=== PATIENT | male | born 1955 | race Caucasian/White ===

== ENCOUNTER 2018-04-16 09:00 | Inpatient (IN) ==
[2018-05-09] MEDS ORDERED: Chlorhexidine Gluconate 2% 1 Pack (2 Cloths) TOPICAL ONE (08:24)
[2018-05-09] MEDS ORDERED: Metoprolol Tartrate 25 MG Tablet PO ONE (08:24)
[2018-05-09] MEDS ORDERED: Chlorhexidine 4% Topical 120 APPLIC/120 ML Bottle TOPICAL SCH (08:30)
[2018-05-09] MEDS ORDERED: Sodium Chlor 0.9% Inj 40 ML, Bupivacaine Liposo PF 1.3% Inj 20 ML P-ARTICULR SCH ×2 (08:30)
[2018-05-09 08:45] LABS: Baso # (Auto) 0.1 th/mm3 (0.0-0.2); Baso % (Auto) 0.7 % (0.0-2.0); Eos # (Auto) 0.2 th/mm3 (0.0-0.4); Eos % (Auto) 1.5 % (0.0-4.0); Hemoglobin 15.2 gm/dL (13.0-17.0); Lymph % (Auto) 31.6 % (9.0-44.0); Mean Corpuscular HGB Conc 32.9 % (32.0-36.0); Mean Corpuscular Hemoglobin 30.2 pg (27.0-34.0); Mean Corpuscular Volume 91.8 fL (80.0-100.0); Mean Platelet Volume 9.9 fL (7.0-11.0); Mono # (Auto) 1.1 th/mm3 (0.0-0.9); Neut # (Auto) 7.3 th/mm3 (1.8-7.7); Neut % (Auto) 57.2 % (16.0-70.0); Platelet Count 236 th/mm3 (150-450); Red Blood Count 5.01 mil/mm3 (4.50-5.90); Red Cell Distribution Width 14.4 % (11.6-17.2); White Blood Count 12.7 th/mm3 (4.0-11.0)
[2018-05-09] MEDS ORDERED: Bupivacaine/Epinephrine Inj 0.25% 50 ML Vial ONE (08:56)
[2018-05-09] MEDS ORDERED: Sodium Chlor 0.9% Inj 500 ML IV.SIG SCH (09:00)
[2018-05-09] MEDS ORDERED: ceFAZolin 2 GM Premix Inj 2 GM/50 ML PIGGYBACK IV.SIG SCH (09:00)
[2018-05-09] MEDS ORDERED: SODIUM CHLOR 0.9% IV.SIG SCH (09:00)
[2018-05-09] MEDS ORDERED: Vancomycin Inj 1,000 MG in Sodium Chlor 0.9% Inj 250 ML IV.SIG SCH (09:00)
[2018-05-09] MEDS ORDERED: TRANEXAMIC ACID IV.SIG SCH (09:00)
[2018-05-09] MEDS ORDERED: Sugammadex Inj 200 MG/2 ML Vial IV.PUSH ONE (10:26)
[2018-05-09] MEDS ORDERED: Morphine Inj 4 MG/ML Vial IV.PUSH PRN (11:07)
[2018-05-09] MEDS ORDERED: oxyCODONE/Acetaminophen 10/325 Tablet PO PRN (11:07)
[2018-05-09] MEDS ORDERED: Post-op Orders (for Pharmacy) OTHER STA (11:07)
[2018-05-09] MEDS ORDERED: Temazepam 15 MG Capsule PO PRN (11:07)
[2018-05-09] MEDS ORDERED: Bisacodyl 10 MG Supp RECTAL PRN (11:07)
--- NOTE | 2018-05-09 11:22 | P.OP ---
- Preoperative Diagnosis (1) Avascular necrosis of bone of right hip - Postoperative Diagnosis (1) Avascular necrosis of bone of right hip Date of procedure: 05/09/18 Procedure: Right total hip replacement arthroplasty, direct anterior exposure Anesthesia: DINH Surgeon: Setf Leger MD Operation and Findings: EBL: 500 cc INDICATION: This patient is a 62-year-old white male with bilateral hip pain. Studies show evidence of severe osteoarthritis of the hip with avascular necrosis. He presents for surgical treatment. We anticipate he will have staged left total hip replacement once he has recovered from this procedure NOTE: Morelia Boss PA-C was present for the entire surgical procedure as my events and promotions assistant. In my medical opinion her skill and care was necessary for the proper management of this patient. COMPONENTS: COMPANY: [employer] CUP: [place], 56 mm, 100 series STEM: [place], size 13, high offset HEAD: Ceramic, 36 mm, +1.5 LINER: 36, neutral PROCEDURE: This patient was brought to the operating room and anesthetized in the supine position. The patient was positioned on the [place] table with the operative leg extended and the contralateral leg held position. The hip and leg was scrubbed with alcohol followed by Hibiclens followed by ChloraPrep and draped sterilely in the clean air suite. Preoperative fluoroscopic images were utilized. A templating x-ray was obtained and printed to be used during the case. A timeout was done and antibiotics were given within a routine time window. A 4 inch incision was made starting 2 cm distal and 2 cm lateral to the anterior superior iliac spine. The tensor fascia angeline fascia was identified and opened longitudinally in line with the incision. Deep retraction allowed good visualization in the interval between the tensor fascia nageline and the rectus and this was opened further. The posterior fascia was opened. Crossing vessels were coagulated appropriately. The anterior aspect of the hip capsule was identified. Retractors were placed above and below the capsule. The capsule was opened longitudinally. Stay sutures were utilized creating flaps for the anterior capsule. The femoral neck was cut at the right location and completed with an oscillating saw. The head and neck was removed and taken to the back table. The leg was externally rotated 60 degrees and traction placed on the extremity. The labrum was excised. A portion of the capsule was excised. Visibility was excellent. Retractors were positioned. Starting 6 mm from the final size reamer, we began reaming up to 1 mm from the anticipated size. This was visualized under fluoroscopy. A trial cup was positioned. This also was visualized under fluoroscopy and minor adjustments were made. The final preparation with a 56 reamer was utilized. The final cup was positioned in approximately 40 degrees of abduction and 20 degrees of forward flexion. This is visualized under fluoroscopy and was seated into the final position. Position was very satisfactory. A single hole eliminator was positioned followed by the plastic liner. The final solution was excellent. Traction was let off. The leg was brought into neutral rotation. A lifting took was positioned underneath the greater trochanter and proximal femur. The leg was maximally X rotated and the foot drop to the floor across midline. Retractors were positioned. A box osteotome was used to gain entrance into the top of the femur. The canal was probed with a finder to ensure that we are within the canal. Successive broaching up to the final stem size was accomplished. Trial reduction showed excellent balancing. Adjustments were made. The wound was irrigated copiously and the canal irrigated. The final stem was inserted in proper orientation. Trial again was trialed and the final head side was impacted. The hip was reduced and with 60 degrees of external rotation the leg to be dropped to the floor without evidence of anterior subluxation. Intraoperative x-rays were obtained. Local anesthesia was utilized for a field block including posterior capsule, inferior capsule, cephalad capsule, region of the greater trochanter, tensor fascia angeline and subcutaneous tissue. The anterior capsule was repaired with interrupted #2 Tycron sutures. The fascia was run with 0 PDS on a loop. Subcutaneous tissue was approximated 2-0 Vicryl suture and skin with running intradermal 3-0 Vicryl followed by benzoin and Steri-Strips. A sterile dressing was applied. The patient was awakened and taken to the recovery room in satisfactory condition FINDINGS: There was severe changes of the femoral head consistent with collapse associated likely with avascular necrosis. The femoral head was sent to pathology for later analysis. The final solution appeared to be excellent
--- NOTE | 2018-05-09 11:22 | P.DCO ---
- Physical Therapy Physical Therapy: Gait training (5 days/week for 2 weeks) Hip: Total hip, Protocol: Right Right Lower Extremity Weight Bearing: Weight bearing as tolerated - Nursing RN: 3 days/week x 2 weeks Nursing: Dressing changes Dressing changes: Do not change dressing (Unless dressing is saturated. If saturated, daily dry dressing change) - Certification Need for Home Health services: I have seen patient Gulshan Corbin on 05/09/18. My clinical findings support the need for the requested home health care services because: Need for Home Health Services: High risk of falls Homebound Certification: I certify that my clinical findings support that this patient is homebound because: Homebound Certification: Unsteady gait/balance
--- NOTE | 2018-05-09 11:32 | XR ---
EXAM DATE: 05/09/2018 11:14 AM EDT AGE/SEX: 62 years / Male INDICATIONS: Post-op right total hip arthroplasty. CLINICAL DATA: This is the patient's initial encounter. Patient reports that signs and symptoms have been present for 1 day and indicates a pain score of Nonresponsive. MEDICAL/SURGICAL HISTORY: Non-responsive. Non-responsive. COMPARISON: No prior exams available for comparison. FINDINGS: 3 views intraoperatively show a total hip arthroplasty in good position. No complications are evident . CONCLUSION: Unremarkable three-view right hip Electronically signed by: Yan Cuevas MD 05/09/2018 11:30 AM EDT
[2018-05-09] MEDS ORDERED: fentaNYL Citrate Inj 100 MCG/2 ML Ampul ONE ×2 (11:43→12:33)
[2018-05-09] MEDS ORDERED: *morphine SULFATE 4 MG/ML PERIprocedure ONLY ONE ×2 (11:50→12:17)
[2018-05-09] MEDS: oxyCODONE/Acetaminophen 10/325 Tablet PO PRN ×2 (14:28→20:54)
[2018-05-09] MEDS: ceFAZolin 1 GM Premix Inj 1 GM/50 ML IV.SIG SCH ×2 (18:18→21:54)
[2018-05-09] MEDS: Multivitamin/Minerals Therapeutic Tablet PO SCH (20:53)
[2018-05-09] MEDS: Senna/Docusate Sodium 8.6/50 MG Tablet PO SCH (20:53)
[2018-05-09] MEDS: Metoprolol Tartrate 50 MG Tablet PO SCH (20:53)
[2018-05-10] MEDS: ceFAZolin 1 GM Premix Inj 1 GM/50 ML IV.SIG SCH (04:22)
[2018-05-10] MEDS: oxyCODONE/Acetaminophen 10/325 Tablet PO PRN ×3 (04:22→13:07)
[2018-05-10 05:41] LABS: Hematocrit 37.5 % (39.0-51.0); Hemoglobin 12.4 gm/dL (13.0-17.0)
--- NOTE | 2018-05-10 07:58 | P.DS ---
Date of admission: 05/09/18 07:36 Primary care physician: Addie Drummond Attending physician on discharge: Stef Leger Anticipated date of discharge: 05/10/18 DS: Diagnosis - Discharge Diagnosis (1) Avascular necrosis of bone of right hip Status: Acute DS: Medications - Discharge Medications Prescriptions: aspirin 81 mg PO BID #60 tab oxycodone-acetaminophen 1 tab PO Q4H PRN #42 tab PRN Reason: Acute Pain DS: Summary Hospital Course: Surgical treatment was performed on the day of admission without complication. He recovered well in PACU and was transferred to the orthopaedic floor. Pain was controlled with IV and oral medications. He was compliant with his therapy and all precautions. After 1 day he was found to be stable and discharge home with home health care. He was instructed to ice the operative site twice daily, to pursue a high fiber diet and to continue therapy. He was given one prescription for pain control but told to return to his pain management physician for all refills. He was also instructed to take asa 81mg twice daily. - Time Spent with Patient Total time spent providing and/or coordinating discharge services: Greater than 30 minutes - Quality: VTE Deep Vein Thrombosis/Pulmonary Embolism Present on Admission: No Exam Vital signs: Vital Signs 05/09/18 08:26 05/09/18 11:37 05/09/18 11:45 Temperature 97.9 F 98.4 F Pulse Rate 73 92 H 87 Respiratory Rate 22 20 20 Blood Pressure 193/104 H 181/74 H 150/71 H Pulse Oximetry 98 96 98 05/09/18 12:00 05/09/18 12:15 05/09/18 13:18 Temperature 97.5 F L 97.4 F L Pulse Rate 75 76 82 Respiratory Rate 20 24 18 Blood Pressure 125/59 L 116/55 L 145/68 H Pulse Oximetry 94 L 94 L 93 L 05/09/18 16:00 05/09/18 20:00 05/10/18 00:00 Temperature 97.4 F L 98.3 F 98.7 F Pulse Rate 90 93 H 99 H Respiratory Rate 12 18 18 Blood Pressure 113/70 149/68 H 107/73 Pulse Oximetry 94 L 96 93 L 05/10/18 01:00 05/10/18 04:00 Temperature 98.4 F Pulse Rate 111 H Respiratory Rate 17 18 Blood Pressure 114/67 Pulse Oximetry 93 L Intake & Output 05/09/18 05/10/18 05/10/18 18:59 06:59 18:59 Intake Total 2300.57 / 2300.57 170 / 170 Output Total 1200 / 1200 300 / 300 Balance 1100.57 / 1100.57 -130 / -130 Weight 105.7 kg 108.9 kg Intake: IV 1460.57 / 1460.57 50 / 50 LR 1000 mL Inj 1,000 ML @ 30 1000 / 1000 mls/hr IV.SIG .Q24H [facility] Rx#: [id number] Cyklokapron Inj 1,057 MG In NS 110.57 / 110.57 Inj 100 ML @ 200 mls/hr IV.SIG ONCE [facility] Rx#:[id number] Vancomycin Inj 1,000 MG In NS 250 / 250 Inj 250 ML @ 250 mls/hr IV.SIG CERTIFIED REAL ESTATE APPRAISER [facility] Rx#:[id number] Ancef 1 GM Premix Inj 1 gm In 50 / 50 50 / 50 50 ml @ 100 mls/hr IV.SIG Q6H [facility] Rx#:[id number] Ancef 2 GM Premix Inj 2 gm In 50 / 50 50 ml @ 100 mls/hr IV.SIG CERTIFIED REAL ESTATE APPRAISER [facility] Rx#:[id number] Oral 240 / 240 120 / 120 Anesthesia Amount 600 / 600 Output: Urine 700 / 700 300 / 300 Estimated Blood Loss 500 / 500 Other: # Voids 3 Date of Last Bowel Movement 05/08/18 05/08/18 Weight On Admission 105.7 kg Results Pending studies at discharge: Pending at discharge 05/09/18 12:40 Surgical [PTH] Routine Labs on day of discharge: Labs from last 24 hours 05/10/18 05/09/18 05/09/18 05:04 08:15 08:15 WBC 12.7 H RBC 5.01 Hgb 12.4 L D 15.2 Hct 37.5 L 46.0 MCV 91.8 MCH 30.2 MCHC 32.9 RDW 14.4 Plt Count 236 MPV 9.9 Neut % (Auto) 57.2 Lymph % (Auto) 31.6 [place] % (Auto) 9.0 H Eos % (Auto) 1.5 Baso % (Auto) 0.7 Neut # (Auto) 7.3 Lymph # (Auto) 4.0 [place] # (Auto) 1.1 H Eos # (Auto) 0.2 Baso # (Auto) 0.1 WBC Differential . Differential Comment Auto diff final Blood Type O Positive Blood Type Recheck Not needed Antibody Screen Negative MTS Gel Crossmatch See Detail - Impressions ITS Impressions Hip X-Ray 05/09/18 00:00 CONCLUSION: Unremarkable three-view right hip Discharge Plan - Discharge Disposition Patient Disposition: 06 Disch W/Home Health Service - Discharge Condition Condition: Good - Discharge Order Discharge Orders: Discharge Order (Routine); Ordered 05/10/18 Ordered By: Stef Leger - Physicians Team Primary Care Provider: Addie Drummond Attending Provider: Stef Leger - Rxs /Orders / Referrals /Forms Prescriptions: New aspirin 81 mg Tablet,Chewable 81 mg PO BID Qty: 60 RF: 0 oxycodone-acetaminophen 10-325 mg Tablet 1 tab PO Q4H PRN (Reason: Acute Pain) Qty: 42 RF: 0 Continue albuterol sulfate [Ventolin HFA] 90 mcg/actuation Hfa Aerosol Inhaler 2 puff INHALATION QID PRN (Reason: Shortness Of Breath) atorvastatin 40 mg Tablet 40 mg PO DAILY cholecalciferol (vitamin D3) [Vitamin D3] 1,000 unit Capsule 1,000 unit PO DAILY hydrocodone-acetaminophen 10-325 mg Tablet 1 tab PO Q6H PRN (Reason: Pain) ibuprofen 400 mg Tablet 400 mg PO QID PRN (Reason: Pain) metformin 500 mg Tablet Extended Release 24 Hr 500 mg PO DAILY metoprolol tartrate 50 mg Tablet 50 mg PO BID tiotropium bromide [Spiriva with HandiHaler] 18 mcg Capsule, W/Inhalation Device 1 cap INHALATION DAILY Ambulatory Orders / Order Sets / DME: Adjustable Commode 3-in-1 (1 each) (Routine) Location: Determined by Patient Ordered By: Stef Leger Walker With Front Wheels (1 each) (Routine) Location: Determined by Patient Ordered By: Stef Leger Referrals: Addie Drummond MD [Primary Care Provider] - See Instructions - Discharge Instructions Patient Printed Instructions: Oxycodone/Acetaminophen (By mouth), Aspirin (By mouth), How to Use an Incentive Spirometer (DC), How to Choose and Use a Walker (GEN), HILDA Hose (DC), Total Hip Replacement (DC) - Post Discharge Care Plan Care Plan Goals: Discharge Care Plan Goals for RIGHT Total Hip Replacement You had a hip replacement surgery. This means your natural hip was replaced with an artificial joint (prosthesis). You may be recovering at home or in a rehabilitation facility. Either way, you must take care of your new hip. Here are some goals to help you heal well. Directions to Meet your Goals: 1. Activity & Exercises: * Take pain medicine as directed by your doctor. * Dont drive until your doctor says its OK. And never drive while taking opioid pain medicine. * Wear the support stockings you were given in the hospital as directed by your surgeon. * Dont sit for more than 30 to 45 minutes at one time. * Dont lean forward while sitting. * Dont cross your legs. * Keep your feet flat on the floor. Dont turn your foot or leg inward. This stresses your hip joint. * Use an elevated toilet seat for 6 weeks after surgery. * Nap if you are tired, but dont stay in bed all day. * Sit on a firm cushion when you ride in a car and avoid sitting too low. Try not to bend your hip too much when getting in and out of the car. 2. Prevent Falls/Injury: * Follow your doctors orders regarding how much weight to put on the affected leg. * Dont bend at the hip when you bend over. Don't bend at the waist to put on socks and shoes. And avoid picking up items from the floor. * Use a cane, crutches, a walker, or handrails until your balance, flexibility, and strength improve. And remember to ask for help from others when you need it. * Free up your hands so that you can use them to keep balance. Use a andrez pack , apron, or pockets to carry things. * Arrange your household to keep the items you need handy. Keep everything else out of the way. * Remove items that may cause you to fall, such as throw rugs and electrical cords. * Use nonslip bath mats, grab bars, an elevated toilet seat, and a shower chair in your bathroom * Sit on a shower stool or chair when you shower to keep from falling. 3. Precautions: * Prevent infection. Any infection will need to be treated immediately. Call your doctor right away if you think you might have an infection. * Tell your dentist that you have an artificial joint and take antibiotics as prescribed before any dental work. * Tell all your healthcare providers about your artificial joint before any medical procedure. * Maintain a healthy weight. Get help to lose any extra pounds. Added body weight puts stress on the joints. 4. Incision Care: * Prevent infection by washing your hands often. If an infection occurs, it will need to be treated right away. * Call your doctor right away if you think you may have an infection. Symptoms include a fever or an incision that leaks white, green, or yellow fluid. * Don't soak your incision in water until your doctor says its OK. This means no hot tubs, bathtubs, or swimming pools. * Follow your doctor's instructions for changing the dressing. * Dont rub the incision, or apply creams or lotions to it. * If you notice any redness or drainage around the bandage site, contact your surgeon's office immediately. 5. Follow-Up: Do Not miss your follow-up appointment. Keep up with all your appointments and yearly check ups When to call your doctor: Call your doctor right away if you have: Hip pain gets worse Pain or swelling in your calf or leg not related to your incision Tenderness or redness in your calf Fever of 100.4F (38C) or higher, or as directed by your healthcare provider Shaking chills Swelling or redness at the incision site gets worse Fluid draining from the incision Call 911: Call 911 right away if you have: Chest pain Shortness of breath Any pain or tenderness in your calf Additional Instruction Follow up with Surgeon as instructed appt on 05/23 at 8:40 pm [facility] office Additional instruction sheet for Total Hip patients from Surgeons office provided at discharge
--- NOTE | 2018-05-10 08:03 | P.PNOP ---
Subjective Interval history: Doing well, POD #1. Was out of bed and ambulating yesterday using a walker. No complaints Physical Exam Vital signs: Vital Signs 05/09/18 08:26 05/09/18 11:37 05/09/18 11:45 Temperature 97.9 F 98.4 F Pulse Rate 73 92 H 87 Respiratory Rate 22 20 20 Blood Pressure 193/104 H 181/74 H 150/71 H Pulse Oximetry 98 96 98 05/09/18 12:00 05/09/18 12:15 05/09/18 13:18 Temperature 97.5 F L 97.4 F L Pulse Rate 75 76 82 Respiratory Rate 20 24 18 Blood Pressure 125/59 L 116/55 L 145/68 H Pulse Oximetry 94 L 94 L 93 L 05/09/18 16:00 05/09/18 20:00 05/10/18 00:00 Temperature 97.4 F L 98.3 F 98.7 F Pulse Rate 90 93 H 99 H Respiratory Rate 12 18 18 Blood Pressure 113/70 149/68 H 107/73 Pulse Oximetry 94 L 96 93 L 05/10/18 01:00 05/10/18 04:00 Temperature 98.4 F Pulse Rate 111 H Respiratory Rate 17 18 Blood Pressure 114/67 Pulse Oximetry 93 L Intake & Output 05/09/18 05/10/18 05/10/18 18:59 06:59 18:59 Intake Total 2300.57 / 2300.57 170 / 170 Output Total 1200 / 1200 300 / 300 Balance 1100.57 / 1100.57 -130 / -130 Weight 105.7 kg 108.9 kg Intake: IV 1460.57 / 1460.57 50 / 50 LR 1000 mL Inj 1,000 ML @ 30 1000 / 1000 mls/hr IV.SIG .Q24H [facility] Rx#: [id number] Cyklokapron Inj 1,057 MG In NS 110.57 / 110.57 Inj 100 ML @ 200 mls/hr IV.SIG ONCE [facility] Rx#:[id number] Vancomycin Inj 1,000 MG In NS 250 / 250 Inj 250 ML @ 250 mls/hr IV.SIG GLASSINE MACHINE TENDER [facility] Rx#:[id number] Ancef 1 GM Premix Inj 1 gm In 50 / 50 50 / 50 50 ml @ 100 mls/hr IV.SIG Q6H [facility] Rx#:[id number] Ancef 2 GM Premix Inj 2 gm In 50 / 50 50 ml @ 100 mls/hr IV.SIG GLASSINE MACHINE TENDER [facility] Rx#:[id number] Oral 240 / 240 120 / 120 Anesthesia Amount 600 / 600 Output: Urine 700 / 700 300 / 300 Estimated Blood Loss 500 / 500 Other: # Voids 3 Date of Last Bowel Movement 05/08/18 05/08/18 Weight On Admission 105.7 kg Narrative: Dressing dry. No significant swelling. No ecchymosis or redness. No calf tenderness. Neuro exam normal Results - Labs CBC & Chem 7: 05/10/18 05:04 Laboratory Results - last 24 hr 05/09/18 05/09/18 05/10/18 08:15 08:15 05:04 WBC 12.7 H RBC 5.01 Hgb 15.2 12.4 L D Hct 46.0 37.5 L MCV 91.8 MCH 30.2 MCHC 32.9 RDW 14.4 Plt Count 236 MPV 9.9 Neut % (Auto) 57.2 Lymph % (Auto) 31.6 Terry % (Auto) 9.0 H Eos % (Auto) 1.5 Baso % (Auto) 0.7 Neut # (Auto) 7.3 Lymph # (Auto) 4.0 Terry # (Auto) 1.1 H Eos # (Auto) 0.2 Baso # (Auto) 0.1 WBC Differential . Differential Comment Auto diff final Blood Type O Positive Blood Type Recheck Not needed Antibody Screen Negative MTS Gel Crossmatch See Detail - Imaging Impressions Hip X-Ray 05/09/18 00:00 CONCLUSION: Unremarkable three-view right hip Assessment and Plan - Problem List (1) Avascular necrosis of bone of right hip Code(s): M87.051 - Idiopathic aseptic necrosis of right femur Status: Acute - Assessment and Plan Avascular necrosis right hip. SURGERY: Right RIP, anterior: POD #1. PLAN: Weightbearing as tolerated. On chronic pain medication. Is given a single prescription of Percocet to bridge after surgery. No dressing change. Home with home health care/home PT. Has a close friend who will stay with him until he is independent. The friend lives close by. Discharged home today. Aspirin for anticoagulation
[2018-05-10] MEDS ORDERED: Tiotropium Bromide 18 MCG/ACT Inhaler INH SCH (09:00)
[2018-05-10] MEDS: Senna/Docusate Sodium 8.6/50 MG Tablet PO SCH (09:06)
[2018-05-10] MEDS: Metoprolol Tartrate 50 MG Tablet PO SCH (09:06)
[2018-05-10] MEDS: Multivitamin/Minerals Therapeutic Tablet PO SCH (09:07)
== END 2018-05-10 14:44 | disposition home health service (06) ==
LOC: HSDI 05-09 07:36 → N06 05-09 13:53
PROVIDERS: ADMIT Orthopaedic Surgery Orthopaedic Surgery of the Spine; ATTEND Orthopaedic Surgery Orthopaedic Surgery of the Spine